=== PATIENT | male | born 1955 | race African-American/Black ===

== ENCOUNTER 2018-01-16 10:41 | Outpatient (CLI) | payer OTHER | END 2018-01-16 10:42 | disposition home or self-care (01) | LOC: BICRAD 10:41 | PROVIDERS: ATTEND Radiology Diagnostic Radiology | DX: Z02.89 Encounter for other administrative examinations (principal); R07.89 Other chest pain | CPT/HCPCS: 71046 ==

== ENCOUNTER 2018-06-01 07:08 | Outpatient (CLI) | payer OTHER | END 2018-06-01 07:09 | disposition home or self-care (01) | LOC: BICULT 07:08 | PROVIDERS: ATTEND Urology | DX: Z12.5 Encounter for screening for malignant neoplasm of prostate (principal); N40.1 Benign prostatic hyperplasia with lower urinary tract symptoms; N28.9 Disorder of kidney and ureter, unspecified; Z87.898 Personal history of other specified conditions; N28.1 Cyst of kidney, acquired | CPT/HCPCS: 36415; 76770; 80048; 81001; 84153; 87086 ==

== ENCOUNTER 2019-09-24 20:41 | Emergency (ER) | payer MEDICARE, OTHER ==
[~2019-09-24 20:41] MED LIST: Iopamidol-370 76% 500 ML 1 ML ONE
[2019-09-24] MEDS ORDERED: Morphine 4 MG/ML VIAL ONE (22:45)
[2019-09-24] MEDS ORDERED: Ondansetron PF 4 MG/2 ML Vial ONE (22:45)
[2019-09-24 22:57] LABS: #Basophils 0.1 thou/uL (0.0-0.2); #Eosinphils 0.1 thou/uL (0.0-0.7); #Lymphocytes 1.2 thou/uL (1.20-3.40); #Monocytes 0.5 thou/uL (0.11-0.59); #Neutrophils 3.6 thou/uL (1.40-6.50); %Basophils 0.9 % (0.0-1.0); %Eosinophils 1.6 % (0.0-10.0); %Lymphocytes 22.8 % (21.0-51.0); %Monocytes 8.6 % (0.0-10.0); %Neutrophils 66.1 % (42.0-75.0); Hemoglobin 13.4 g/dL (14.0-18.0); Mean Corpuscular HGB CONC 33.9 g/dL (32.0-36.0); Mean Corpuscular Hemoglobin 31.9 pg (27.0-31.0); Mean Corpuscular Volume 94.2 fL (78.0-98.0); Mean Platelet Volume 8.4 fL (7.4-10.4); Platelet Count 207 thou/uL (130-400); RBC Distribution Width 11.4 % (11.5-14.5); Red Blood Cell (RBC) Count 4.21 mill/uL (4.70-6.10); White Blood Cell (WBC) Count 5.4 thou/uL (4.8-10.8)
[2019-09-25 00:12] LABS: ALT (SGPT) 11 U/L (8-55); AST (SGOT) 15 U/L (5-34); Albumin 4.3 g/dL (3.4-4.8); Alkaline Phosphatase 59 U/L (40-110); Anion Gap 11 mmol/L (10-20); BUN (Urea Nitrogen) 18 mg/dL (8.4-25.7); Bilirubin, Total 0.4 mg/dL (0.2-1.2); Calc. Creatinine Clearance 0 mL/min (70-130); Calcium 9.6 mg/dL (7.8-10.44); Carbon Dioxide 26 mmol/L (23-31); Chloride 104 mmol/L (98-107); Estimated GFR-MDRD 74; Globulin 3.1 g/dL (2.4-3.5); Glucose 115 mg/dL (80-115); Lipase 50 U/L (8-78); Potassium 4.2 mmol/L (3.5-5.1); Protein, Total 7.4 g/dL (5.8-8.1); Sodium 137 mmol/L (136-145)
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
== END 2019-09-25 01:18 | disposition home or self-care (01) ==
LOC: ERS 20:41
DX: R20.2 Paresthesia of skin (principal); M79.605 Pain in left leg; I10 Essential (primary) hypertension; V89.2XXA Person injured in unspecified motor-vehicle accident, traffic, initial encounter
CPT/HCPCS: 36416; 70450; 71260; 72125; 74177; 80053; 83690; 85025; 96374; 96375; J2270; J2405; Q9967

== ENCOUNTER 2020-03-06 05:44 | Outpatient (CLI) | payer MEDICARE, OTHER ==
[2020-03-06 11:08] LABS: #Eosinphils 0.2 thou/uL (0.0-0.7); #Lymphocytes 1.2 thou/uL (1.20-3.40); #Monocytes 0.5 thou/uL (0.11-0.59); #Neutrophils 2.4 thou/uL (1.40-6.50); %Basophils 0.4 % (0.0-1.0); %Eosinophils 4.9 % (0.0-10.0); %Lymphocytes 27.8 % (21.0-51.0); %Monocytes 11.8 % (0.0-10.0); %Neutrophils 55.2 % (42.0-75.0); Hemoglobin 14.2 g/dL (14.0-18.0); Mean Corpuscular HGB CONC 32.6 g/dL (32.0-36.0); Mean Corpuscular Hemoglobin 31.3 pg (27.0-31.0); Mean Corpuscular Volume 96.1 fL (78.0-98.0); Platelet Count 238 thou/uL (130-400); Red Blood Cell (RBC) Count 4.55 mill/uL (4.70-6.10); White Blood Cell (WBC) Count 4.4 thou/uL (4.8-10.8)
[2020-03-06 11:31] LABS: ALT (SGPT) 16 U/L (8-55); AST (SGOT) 24 U/L (5-34); Albumin 4.3 g/dL (3.4-4.8); Alkaline Phosphatase 68 U/L (40-110); Anion Gap 13 mmol/L (10-20); BUN (Urea Nitrogen) 21 mg/dL (8.4-25.7); Bilirubin, Total 0.6 mg/dL (0.2-1.2); Calc. Creatinine Clearance 0 mL/min (70-130); Calcium 9.9 mg/dL (7.8-10.44); Carbon Dioxide 25 mmol/L (23-31); Chloride 104 mmol/L (98-107); Estimated GFR-MDRD 57; Globulin 3.2 g/dL (2.4-3.5); Glucose 105 mg/dL (80-115); Potassium 4.4 mmol/L (3.5-5.1); Protein, Total 7.5 g/dL (5.8-8.1); Sodium 138 mmol/L (136-145)
--- NOTE | 2020-03-06 17:00 | EKG ---
Test Reason : Blood Pressure : / mmHG Vent. Rate : 069 BPM Atrial Rate : 069 BPM P-R Int : 182 ms QRS Dur : 084 ms QT Int : 378 ms P-R-T Axes : 018 007 -06 degrees QTc Int : 405 ms Normal sinus rhythm Voltage criteria for left ventricular hypertrophy Nonspecific T wave abnormality Abnormal ECG When compared with ECG of 30-JUN-2014 09:40, No significant change was found Confirmed by DR. Nury ZELAYA ([id number]) on 03/06/2020 5:00:10 PM Referred By: MARISOL Confirmed By:DR. Nury ZELAYA
[2020-03-06 17:59] LABS: SARS-CoV-2 MS2 Positive; SARS-CoV-2 N Gene Negative; SARS-CoV-2 S Gene Negative; SARS-CoV-2 orf1ab Negative
== END 2020-03-06 05:45 | disposition home or self-care (01) ==
LOC: LABBT 05:44
PROVIDERS: ATTEND Surgery
DX: Z01.818 Encounter for other preprocedural examination (principal); Z11.59 Encounter for screening for other viral diseases; K42.0 Umbilical hernia with obstruction, without gangrene
CPT/HCPCS: 80053; 85025; 93005; U0002; 87635; 93010

== ENCOUNTER 2020-03-08 08:25 | Day surgery (SDC) | payer MEDICARE ==
[2020-03-06 10:36] VITALS: BMI 28.8
[~2020-03-08 08:25] MED LIST changes: +Dexamethasone 20 MG/5 ML VIAL ONE; -Iopamidol-370 76% 500 ML 1 ML ONE; +Ketorolac Tromethamine 30 MG/ML VIAL ONE; +Ondansetron PF 4 MG/2 ML Vial ONE; +PROPOFOL 200 MG/20 ML VIAL ONE; +Rocuronium Bromide 10 MG/ML (10ML VIAL) ONE; +Succinylcholine Chloride 20 MG/ML 10 ml SYRINGE FS ONE
[2020-03-08] MEDS ORDERED: Bupivacaine PF 0.5% 30 ML VIAL ONE (12:42)
[2020-03-08] MEDS ORDERED: Lidocaine 1% w/Epinephrine 1:100K 20 ML VIAL ONE (12:42)
[2020-03-08] MEDS ORDERED: Fentanyl 100 MCG/2 ML VIAL ONE (12:43)
[2020-03-08] MEDS ORDERED: SUGAMMADEX SODIUM 200 MG/2 ML VIAL ONE (13:42)
--- NOTE | 2020-03-09 06:08 | OP ---
DATE OF PROCEDURE: 03/08/2020 PREOPERATIVE DIAGNOSIS: Umbilical hernia. PROCEDURE PERFORMED: Umbilical hernia repair with mesh. INDICATIONS: A 64-year-old male with a painful umbilical hernia. FINDINGS: 2 cm defect, 8 cm mesh used. DESCRIPTION OF PROCEDURE: After informed consent was obtained, the patient was taken to the operating room and given general mask anesthesia and placed in supine position. Abdomen was prepped and draped in usual fashion. Local anesthesia was infiltrated subcutaneously and deep. A subumbilical incision was performed. Subcu divided sharply. The hernia sac was dissected from overlying skin sharply with Metzenbaum scissors circumferentially. It was then dissected down to the fascia. The hernia sac excised, its contents reduced. Reduction was maintained utilizing an 8 cm Proceed mesh. The mesh was hydrated, inserted intra-abdominally, pulled up, and the leaves were sutured to the abdominal wall with interrupted 0 Ethibond suture. Then, further secured circumferentially with interrupted 0 Ethibond suture. Hemostasis was assured. The skin was then sutured to the fascia with interrupted 3-0 Vicryl to restore umbilical contour. Then, the skin was closed with interrupted 4-0 Rapide. Steri-Strips applied. Sterile bandage applied. The patient tolerated the procedure well and was transferred to Recovery in good condition. Sponge and needle count verified correct x2. Job ID: [id number]
== END 2020-03-08 15:30 | disposition home or self-care (01) ==
LOC: SDC 08:25
PROVIDERS: ATTEND Surgery
PROC: 0WUF0JZ Supplement Abdominal Wall with Synthetic Substitute, Open Approach (ICD-10-PCS; principal; 2020-03-08)
DX: K42.0 Umbilical hernia with obstruction, without gangrene (principal); I12.9 Hypertensive chronic kidney disease with stage 1 through stage 4 chronic kidney disease, or unspecified chronic kidney disease; N18.9 Chronic kidney disease, unspecified; N40.0 Benign prostatic hyperplasia without lower urinary tract symptoms; N52.9 Male erectile dysfunction, unspecified; Z79.899 Other long term (current) drug therapy
CPT/HCPCS: C1781; J0690; J1100; J1885; J2405; J2704; J3010; S0020

== ENCOUNTER 2022-06-17 09:17 | Outpatient (CLI) | payer MEDICARE ==
[2022-06-17 10:27] LABS: Bilirubin Neg (Negative); Blood, Urine Negative (Negative); Clarity Clear (Clear); Glucose, Urine (Dipstick) Normal (Negative); Ketone, Urine Negative (Negative); Leukocyte Negative (Negative); Nitrite Negative (Negative); Protein, Urine (Dipstick) Negative (Neg-Trace); Specific Gravity, Urine 1.015 (1.002-1.036); Urobilinogen Normal mg/dL (Less than 2)
[2022-06-17 10:32] LABS: Hemoglobin 12.7 g/dL (13.5-17.5); Mean Corpuscular HGB CONC 31.7 g/dL (32.0-36.0); Mean Corpuscular Hemoglobin 30.7 pg (27.0-33.0); Mean Corpuscular Volume 96.9 fl (81.2-95.1); Mean Platelet Volume 10.2 fl (7.4-10.4); Platelet Count 242 10x3/uL (150-450); RBC Distribution Width 11.6 % (11.5-14.5); Red Blood Cell (RBC) Count 4.14 10x6/uL (4.32-5.72); White Blood Cell (WBC) Count 3.5 10x3/uL (3.5-10.5)
[2022-06-17 10:44] LABS: Bacteria/HPF None Seen HPF (None Seen); RBC/HPF 0-3 HPF (0-3); Squamous Epithelial None Seen HPF (0-3); WBC/HPF None Seen HPF (0-3)
[2022-06-17 10:55] LABS: INR-International Normal Ratio 0.9; PTT 25.8 sec (22.0-33.0); Prothrombin Time 10.3 sec (9.5-12.1)
[2022-06-17 11:02] LABS: Anion Gap 10 mmol/L (10-20); BUN (Urea Nitrogen) 16 mg/dL (8.4-25.7); Calc. Creatinine Clearance 0 mL/min (70-130); Carbon Dioxide 29 mmol/L (23-31); Chloride 107 mmol/L (98-107); Estimated GFR 59; Glucose 108 mg/dL (80-115); Potassium 4.5 mmol/L (3.5-5.1); Sodium 141 mmol/L (136-145)
== END 2022-06-17 09:18 | disposition home or self-care (01) ==
LOC: LABBT 09:17
PROVIDERS: ATTEND Urology
DX: Z01.818 Encounter for other preprocedural examination (principal); N40.1 Benign prostatic hyperplasia with lower urinary tract symptoms; R35.0 Frequency of micturition; N52.9 Male erectile dysfunction, unspecified; N28.9 Disorder of kidney and ureter, unspecified; Z20.822 Contact with and (suspected) exposure to COVID-19
CPT/HCPCS: 80048; 81001; 85027; 85610; 85730; 87086; 87811; 93005; 93010

== ENCOUNTER 2022-06-19 06:07 | Observation (INO) | payer MEDICARE ==
[2022-06-17 10:12] VITALS: BMI 28.1
[2022-06-19] MEDS ORDERED: CEFAZOLIN 2 GM VIAL ONE (07:23)
[2022-06-19] MEDS ORDERED: Sodium Chloride 0.9% 0 ML ONE (07:23)
[2022-06-19] MEDS ORDERED: Levofloxacin 500 mg/D5W 100 ml Premix Bag ONE (07:24)
[2022-06-19] MEDS ORDERED: fentaNYL Citrate/PF 100 MCG/2 ML SYRINGE ONE (08:20)
[2022-06-19] MEDS ORDERED: Famotidine/PF 20 mg/2ml Vial ONE (08:20)
[2022-06-19] MEDS ORDERED: SUGAMMADEX SODIUM 200 MG/2 ML VIAL ONE ×2 (08:20)
[2022-06-19] MEDS ORDERED: Lidocaine 1% PF 5 ML VIAL ONE (08:36)
[2022-06-19] MEDS ORDERED: Phenylephrine 10 MG/ML VIAL ONE (08:36)
[2022-06-19] MEDS ORDERED: Ondansetron PF 4 MG/2 ML Vial ONE (08:36)
[2022-06-19] MEDS ORDERED: Metoclopramide HCl 10 MG/2 ML VIAL ONE (08:36)
[2022-06-19] MEDS ORDERED: Rocuronium Bromide 10 MG/ML (10ML VIAL) ONE (08:36)
[2022-06-19] MEDS ORDERED: PROPOFOL 200 MG/20 ML VIAL ONE (08:36)
[2022-06-19] MEDS ORDERED: Ondansetron HCl/PF 4 MG/2 ML Vial IVP PRN (09:43)
[2022-06-19] MEDS ORDERED: Promethazine HCl 25 MG/ML VIAL IVPB PRN (09:43)
[2022-06-19] MEDS ORDERED: Promethazine HCl 25 MG/ML VIAL IM PRN (09:43)
[2022-06-19] MEDS ORDERED: Ondansetron PF 4 MG/2 ML Vial IVP PRN (10:37)
[2022-06-19] MEDS ORDERED: Phenazopyridine HCl 97.5 MG TABLET PO PRN (10:37)
[2022-06-19] MEDS ORDERED: Zolpidem Tartrate 5 MG TAB PO PRN (10:37)
[2022-06-19] MEDS ORDERED: Acetaminophen 500 MG TAB PO PRN (10:37)
[2022-06-19] MEDS ORDERED: hydrALAZINE 20 MG/ML VIAL SLOW IVP PRN ×2 (10:37)
[2022-06-19] MEDS ORDERED: Mag-Al 1200 mg/1200 mg/30 ML UDCUP PO PRN (10:37)
[2022-06-19] MEDS ORDERED: HYDROcodone/Acetaminophen 5/325 mg Tablet PO PRN ×2 (10:37)
[2022-06-19] MEDS ORDERED: Morphine 4 MG/ML VIAL SLOW IVP PRN (10:37)
[2022-06-19] MEDS ORDERED: diphenhydrAMINE 50 MG/ML VIAL IVP PRN (10:37)
[2022-06-19] MEDS ORDERED: Oxybutynin 5 MG TAB PO PRN (10:37)
[2022-06-19] MEDS ORDERED: Morphine 2 MG/ML VIAL SLOW IVP PRN (10:37)
[2022-06-19] MEDS ORDERED: Sodium Chloride 0.9% 1,000 ML IV SCH (10:45)
[2022-06-19 11:45] LABS: #Eosinphils 0.1 thou/uL (0.0-0.7); #Lymphocytes 1.1 thou/uL (1.20-3.40); #Monocytes 0.2 thou/uL (0.11-0.59); #Neutrophils 2.3 thou/uL (1.40-6.50); %Eosinophils 2.2 % (0.0-10.0); %Lymphocytes 29.9 % (21.0-51.0); %Monocytes 5.8 % (0.0-10.0); %Neutrophils 61.2 % (42.0-75.0); Hemoglobin 12.3 g/dL (14.0-18.0); Mean Corpuscular HGB CONC 32.2 g/dL (32.0-36.0); Mean Corpuscular Hemoglobin 31.8 pg (27.0-31.0); Mean Corpuscular Volume 98.8 fL (78.0-98.0); Mean Platelet Volume 7.8 fL (7.4-10.4); Platelet Count 208 thou/uL (130-400); RBC Distribution Width 11.1 % (11.5-14.5); Red Blood Cell (RBC) Count 3.88 mill/uL (4.70-6.10); White Blood Cell (WBC) Count 3.8 thou/uL (4.8-10.8)
[2022-06-19 12:27] LABS: Anion Gap 11 mmol/L (10-20); BUN (Urea Nitrogen) 17 mg/dL (8.4-25.7); Calc. Creatinine Clearance 65 mL/min (70-130); Calcium 8.8 mg/dL (7.8-10.44); Carbon Dioxide 27 mmol/L (23-31); Chloride 106 mmol/L (98-107); Estimated GFR 60; Glucose 138 mg/dL (80-115); Potassium 4.2 mmol/L (3.5-5.1); Sodium 140 mmol/L (136-145)
[2022-06-19] MEDS ORDERED: cloNIDine 0.1 MG TAB PO SCH (19:00)
[2022-06-19] MEDS: Docusate 100 MG CAP PO SCH (21:41)
[2022-06-19] MEDS: Famotidine/PF 20 mg/2ml Vial SLOW IVP SCH (21:41)
[2022-06-20 06:46] LABS: #Lymphocytes 1.1 thou/uL (1.20-3.40); #Neutrophils 6.6 thou/uL (1.40-6.50); %Basophils 0.3 % (0.0-1.0); %Eosinophils 0.2 % (0.0-10.0); %Lymphocytes 12.6 % (21.0-51.0); %Monocytes 11.4 % (0.0-10.0); %Neutrophils 75.5 % (42.0-75.0); Hemoglobin 11.5 g/dL (14.0-18.0); Mean Corpuscular HGB CONC 32.4 g/dL (32.0-36.0); Mean Platelet Volume 8.1 fL (7.4-10.4); Platelet Count 199 thou/uL (130-400); Red Blood Cell (RBC) Count 3.59 mill/uL (4.70-6.10); White Blood Cell (WBC) Count 8.7 thou/uL (4.8-10.8)
[2022-06-20 07:04] LABS: Anion Gap 11 mmol/L (10-20); BUN (Urea Nitrogen) 15 mg/dL (8.4-25.7); Calc. Creatinine Clearance 56 mL/min (70-130); Calcium 8.4 mg/dL (7.8-10.44); Carbon Dioxide 25 mmol/L (23-31); Chloride 106 mmol/L (98-107); Estimated GFR 49; Glucose 114 mg/dL (80-115); Potassium 3.9 mmol/L (3.5-5.1); Sodium 138 mmol/L (136-145)
[2022-06-20] MEDS: Famotidine/PF 20 mg/2ml Vial SLOW IVP SCH (08:09)
[2022-06-20] MEDS: Docusate 100 MG CAP PO SCH (08:10)
[2022-06-20 08:16] VITALS: BP 133/74; TEMP 98.7
[2022-06-20] MEDS ORDERED: Metamucil PACK PO SCH (09:00)
[2022-06-20] MEDS ORDERED: Cholecalciferol 1,000 UNITS (25 MCG) TAB PO SCH (09:00)
[2022-06-20] MEDS ORDERED: Atorvastatin Calcium 10 MG TAB PO SCH (09:00)
[2022-06-20] MEDS ORDERED: Dutasteride 0.5 MG CAP PO SCH (09:00)
[2022-06-20] MEDS ORDERED: Tamsulosin HCl 0.4 MG CAP PO SCH ×2 (09:00)
[2022-06-20] MEDS ORDERED: Lisinopril/Hydrochlorothiazide 20 mg/12.5 mg Tablet PO SCH (09:00)
[2022-06-20] MEDS ORDERED: cefTRIAXone\\ROCEPHIN 1 GM in Sodium Chloride 0.9% 100 ML IVPB SCH (12:00)
== END 2022-06-20 14:55 | disposition home or self-care (01) ==
LOC: SDC 06:07 → SJJU 10:37
PROVIDERS: ADMIT Urology; ATTEND Urology
PROC: 0VT08ZZ Resection of Prostate, Via Natural or Artificial Opening Endoscopic (ICD-10-PCS; principal; 2022-06-19)
DX: N40.1 Benign prostatic hyperplasia with lower urinary tract symptoms (principal); N13.8 Other obstructive and reflux uropathy; N32.89 Other specified disorders of bladder; I10 Essential (primary) hypertension; Z79.899 Other long term (current) drug therapy
CPT/HCPCS: 36415; 80048; 85025; 88305; C1769; J0360; J0690; J1956; J2370; J2405; J2704; J2765; J3490; S0028